=== PATIENT | female | born 1995 | race African-American/Black ===

== ENCOUNTER 2017-10-07 11:13 | Emergency (ER) | payer OTHER ==
[~2017-10-07] VITALS: Ht 160 cm; Wt 66.8 kg
[2017-10-07 11:15] VITALS: BP 141/85
[2017-10-07 12:25] LABS: HCG UR SG 1.025 (1.003-1.030)
[2017-10-07 12:26] LABS: MICROSCOPIC INDICATED
[2017-10-07 12:28] LABS: CULTURE INDICATED? YES
[2017-10-07 12:32] LABS: CLUE CELLS NONE SEEN (NONE SEEN); WET PREP WBCS MODERATE (FEW)
== END 2017-10-07 13:00 | disposition home or self-care (01) ==
LOC: ED 12:00
DX: N89.8 Other specified noninflammatory disorders of vagina (principal); B37.3 Candidiasis of vulva and vagina
CPT/HCPCS: 81001; 81025; 87086; 87210; 87491; 87591; 87808; 99284

== ENCOUNTER 2017-10-14 13:33 | Emergency (ER) | payer OTHER ==
[~2017-10-14] VITALS: Ht 160 cm; Wt 66.1 kg
[2017-10-14] MEDS ORDERED: CEFTRIAXONE 250 MG IM ONE (15:00)
[2017-10-14] MEDS ORDERED: CEFTRIAXONE 250 MG ONE (15:49)
[2017-10-14 15:56] VITALS: BP 116/69
== END 2017-10-14 16:32 | disposition home or self-care (01) ==
LOC: ED 16:23
DX: A56.09 Other chlamydial infection of lower genitourinary tract (principal)
CPT/HCPCS: 76830; 96372; 99284; J0696